=== PATIENT | male | born 1980 | race Caucasian/White ===

== ENCOUNTER 2024-05-19 04:57 | Emergency (ER) | payer BC, OTHER ==
[~2024-05-19] VITALS: Ht 177.8 cm; Wt 79.2 kg
--- NOTE | 2024-05-19 05:26 | ED.PDOC ---
General HPI Comments 43-year-old male came to emergency room for flank pains. Patient states for the past 2 days, he has been experiencing episodes of right flank pain, lower back pains, suprapubic pain associated with dysuria. Denies any fever, nausea or vomiting. Chief Complaint: Flank Pain Time Seen by MD: 05:25 Reviewed notes: Nurses Notes Allergies: Coded Allergies: NO KNOWN ALLERGIES (Unverified , 05/19/24) Information Source: Patient Mode of Arrival: Ambulatory Severity: Moderate Inability to void: Mild Timing: Days Duration: Intermittent Has not urinated for: Minutes Onset: Spontaneous Symptoms: Dysuria History of: Kidney stone Location: (R) Flank associated signs and symptoms: Abdominal Pain, Flank Pain, Back Pain, Dysuria Past Medical History PAST MEDICAL HISTORY: Cancer (Colorectal cancer on chemotherapy), Kidney Stones Surgical History: Hernia Repair Family History Family History: Reviewed,noncontributory to illness Social History Smoker: Non-Smoker Alcohol: Occasionally Drugs: Denies Drug Use Lives In: Home Constitutional: denies: chills, diaphoresis, fatigue, fever, malaise, sweats, weakness, others EENTM: denies: blurred vision, double vision, ear bleeding, ear discharge, ear drainage, ear pain, ear ringing, eye pain, eye redness, hearing loss, mouth pain, mouth swelling, nasal discharge, nose bleeding, nose congestion, nose pain, photophobia, tearing, throat pain, throat swelling, voice changes, others Respiratory: denies: cough, hemoptysis, orthopnea, SOB at rest, shortness of breath, SOB with excertion, stridor, wheezing, others Cardiovascular: denies: chest pain, dizzy spells, diaphoresis, Dyspnea on exertion, edema, irregular heart beat, left arm pain, lightheadedness, palpitations, PND, syncope, others Gastrointestinal: reports: abdominal pain; denies: abdomen distended, blood streaked bowels, constipated, diarrhea, dysphagia, difficulty swallowing, hematemesis, melena, nausea, poor appetite, poor fluid intake, rectal bleeding, rectal pain, vomiting, others Genitourinary: reports: dysuria, flank pain; denies: burning, frequency, hematuria, incontinence, penile discharge, penile sore, pain, testicle pain, testicle swelling, urgency, others Neurological: denies: dizziness, fainting, headache, left sided numbness, left sided weakness, numbness, paresthesia, pre-existing deficit, right sided numbness, right sided weakness, seizure, speech problems, tingling, tremors, weakness, others Musculoskeletal: reports: back pain; denies: gout, joint pain, joint swelling, muscle pain, muscle stiffness, neck pain, others Integumetry: denies: bruises, change in color, change in hair/nails, dryness, laceration, lesions, lumps, rash, wounds, others Allergic/Immunocompromised: denies: Difficulty Healing, Frequent Infections, Hives, Itching, others Hematologic/Lymphatic: denies: anemia, blood clots, easy bleeding, easy bruising, swollen glands, others Endocrine: denies: excessive hunger, excessive sweating, excessive thirst, excessive urination, flushing, intolerance to cold, intolerance to heat, unexplained weight gain, unexplained weight loss, others Psychiatric: denies: anxiety, bipolar disorder, depression, hopeless, panic disorder, schizophrenia, sleepless, suicidal, others Physical Exam General Appearance: No Apparent Distress, Normal HEENT: Normal ENT Inspection, Pharynx Normal, TMs Normal Neck: Full Range of Motion, Non-Tender, Normal, Normal Inspection Respiratory: Chest Non-Tender, Lungs Clear, No Accessory Muscle Use, No Respiratory Distress, Normal Breath Sounds Cardiovascular: No Edema, No JVD, No Murmur, No Gallop, Normal Peripheral Pulses, Regular Rate/Rhythm Breast Exam: Deferred Gastrointestinal: No Organomegaly, No Pulsatile Mass, Normal Bowel Sounds, Soft, Suprapubic, Tenderness (Right CVA) Genitalia: Deferred Pelvic: Deferred Rectal: Deferred Extremities: No calf tenderness, Normal capillary refill, Normal inspection, Normal range of motion, Non-tender, No pedal edema Musculoskeletal : Apperance: Normal Neurologic: Alert, materials management manager II-XII nml as Tested, No Motor Deficits, Normal Affect, Normal Mood, No Sensory Deficits Cerebellar Function: Normal Reflexes: Normal Skin: Dry, Normal Color, Warm Lymphatic: No Adenopathy Was a procedure done? Was a procedure done?: No Differential Diagnosis Kidney stone (Female): N/A Kidney stone (Male): Strain, Urinary obstruction, Urolithiasis, Renal infarction, Urinary tract infection Urinary Problem (Female): Pyelonephritis, Urolithiasis, UTI X-Ray, Labs, Meds, VS Vital Signs Date Time Temp Pulse Resp B/P (MAP) Pulse Ox O2 Delivery O2 Flow Rate FiO2 05/19/24 06:30 71 18 98 Room Air* 0 21 05/19/24 06:26 71 16 123/84 (97) 99 05/19/24 05:05 97.6 70 12 150/93 (112) 99 Lab Test 05/19/24 05:19 05/19/24 05:00 Range/Units White Blood Count 3.3 L 4.4-10.8 10^3/uL Red Blood Count 4.10 L 4.5-5.90 10^6/uL Hemoglobin 12.8 L 13.5-17.5 g/dL Hematocrit 37.6 L 41.0-53.0 % Mean Corpuscular Volume 91.8 80.0-100.0 fL Mean Corpuscular Hemoglobin 31.3 28.0-32.0 pg Mean Corpuscular Hemoglobin Concent 34.1 32.0-36.0 g/dL Red Cell Distribution Width 15.5 H 11.8-14.3 % Platelet Count 149 140-450 10^3/uL Mean Platelet Volume 7.5 6.9-10.8 fL Neutrophils (%) (Auto) 61.7 37.0-80.0 % Lymphocytes (%) (Auto) 23.3 10.0-50.0 % Monocytes (%) (Auto) 11.5 0.0-12.0 % Eosinophils (%) (Auto) 3.0 0.0-7.0 % Basophils (%) (Auto) 0.5 0.0-2.0 % Neutrophils # (Auto) 2.0 1.6-8.6 10 ^3/uL Lymphocytes # (Auto) 0.8 0.4-5.4 10 ^3/uL Monocytes # (Auto) 0.4 0-1.3 10 ^3/uL Eosinophils # (Auto) 0.1 0-0.8 10 ^3/uL Basophils # (Auto) 0 0-0.2 10 ^3/uL Nucleated Red Blood Cells 0.1 % Sodium Level 137 136-145 mmol/L Potassium Level 3.9 3.5-5.1 mmol/L Chloride Level 105 98-107 mmol/L Carbon Dioxide Level 26 20-31 mmol/L Anion Gap 6 5-15 Blood Urea Nitrogen 12 9-23 mg/dL Creatinine 0.84 0.700-1.30 mg/dL Glomerular Filtration Rate Calc 110 >90 mL/min BUN/Creatinine Ratio 14.3 10.0-20.0 Serum Glucose 95 74-106 mg/dL Calcium Level 10.4 8.7-10.4 mg/dL Urine Color Colorless Yellow Urine Clarity Clear Clear Urine pH 6.0 5.0-9.0 Urine Specific [place] 1.003 1.001-1.035 Urine Protein Negative Negative Urine Ketones Negative Negative Urine Blood 1+ H Negative /uL Urine Nitrite Negative Negative Urine Bilirubin Negative Negative Urine Urobilinogen Normal Negative mg/dL Urine Leukocyte Esterase Negative Negative /uL Urine RBC 1 0 - 3 /hpf Urine Microscopic WBC 1 0-3 /HPF Urine Squamous Epithelial Cells None seen <5 /hpf Urine Bacteria None seen None Seen /hpf Urine Hyaline Casts Few 0 - 2 /lpf Urine Glucose Normal Normal mg/dL Current Medications Medications (Trade) Dose Ordered Sig/Marce Route Start Time Stop Time Status Last Admin Tamsulosin HCl (Flomax) 0.4 mg ONCE ONCE PO 05/19/24 07:00 05/19/24 07:01 DC 05/19/24 07:17 X-Ray, Labs, Meds, VS Comment Addendum by Glenna: This 43 year old male presents with RIGHT flank pain. Patient noted to have hematuria and nephrolithiasis. The kidney stones 5 mm. He states the pain is well controlled and, as such, he was not requesting [place]. He will be discharged home with Flomax. He is asked to very well hydrated to try to pass the stone. However, if he was increasing pain, fever, chills, sweats, nausea or vomiting or any other signs or symptoms that has concerned, he is asked to return to emergency room immediately. He states his understanding Time of 1ST Reevaluation: 05:21 Reevaluation 1ST: Unchanged Patient Education/Counseling: Diagnosis, Treatment Family Education/Counseling: No Family Present Departure 1 Departure Time of Disposition: 08:07 Impression: Primary Impression: Right flank pain Additional Impression: Nephrolithiasis Disposition: 01 HOME / SELF CARE / HOMELESS Condition: Good Discharged With: Self Critical Care Note Critical Care Time?: No Stability Stability form required: No Heart Score Heart Score: Heart Score Response (Comments) Value History N/A 0 EKG N/A 0 Age N/A 0 Risk Factors N/A 0 Troponin N/A 0 Total 0 I personally scribed for DANITA KAUR MD ([email or web address]) on 05/19/24 at 05:26. Electronically submitted by Bobo Dutton ([email or web address]). DANITA KAUR MD May 19, 2024 05:26 HAILE ROWE MD May 19, 2024 08:07
[2024-05-19 05:35] LABS: Basophils # (auto) 0 10 ^3/uL (0-0.2); Basophils % (auto) 0.5 % (0.0-2.0); Eosinophils # (auto) 0.1 10 ^3/uL (0-0.8); Hematocrit 37.6 % (41.0-53.0); Hemoglobin 12.8 g/dL (13.5-17.5); Lymphocytes # (auto) 0.8 10 ^3/uL (0.4-5.4); Lymphocytes % (auto) 23.3 % (10.0-50.0); Mean Corpuscular Hemoglobin 31.3 pg (28.0-32.0); Mean Corpuscular Hgb Conc. 34.1 g/dL (32.0-36.0); Mean Corpuscular Volume 91.8 fL (80.0-100.0); Monocytes # (auto) 0.4 10 ^3/uL (0-1.3); Monocytes % (auto) 11.5 % (0.0-12.0); Neutrophils % (auto) 61.7 % (37.0-80.0); Nucleated Red Blood Cells % 0.1 %; Platelet Count (auto) 149 10^3/uL (140-450); Red Cell Distribution Width 15.5 % (11.8-14.3); White Blood Cell 3.3 10^3/uL (4.4-10.8)
[2024-05-19 05:36] LABS: Urine Bacteria None Seen /hpf (None Seen)
[2024-05-19 05:48] LABS: Chloride 105 mmol/L (98-107); Potassium 3.9 mmol/L (3.5-5.1); Sodium 137 mmol/L (136-145)
[2024-05-19 05:49] LABS: Anion Gap 6 (5-15); Carbon Dioxide 26 mmol/L (20-31)
[2024-05-19 05:50] LABS: Calcium 10.4 mg/dL (8.7-10.4)
[2024-05-19 05:54] LABS: BUN/Creatinine Ratio 14.3 (10.0-20.0); Blood Urea Nitrogen 12 mg/dL (9-23); Glucose 95 mg/dL (74-106)
[2024-05-19 06:03] LABS: Urine Blood 1+ /uL (Negative); Urine Clarity Clear (Clear); Urine Color Colorless (Yellow); Urine Hyaline Cast FEW /lpf (0 - 2); Urine Protein, UAD Negative (Negative); Urine Specific Gravity 1.003 (1.001-1.035); Urine Squamous Epithelial Cell None Seen /hpf (<5); Urine Urobilinogen Normal (Negative)
[2024-05-19 06:30] VITALS: PULSE 71; RESP 18; O2SAT 98
[2024-05-19 06:35] LABS: Urine WBC 1 /HPF (0-3)
[2024-05-19] MEDS: TAMSULOSIN HYDROCHLORIDE 0.4 MG CAP PO ONE (07:17)
[2024-05-19] MEDS: MORPHINE SULFATE 4 MG/ML SYR/VIAL IV ONE (07:20)
[2024-05-19] MEDS: SODIUM CHLORIDE 0.9% 1,000 ML IV ONE (07:20)
[2024-05-19] MEDS: FAMOTIDINE (10MG/ML) 2ML VL IV ONE (07:21)
[2024-05-19] MEDS: ONDANSETRON HCL 4 MG/2 ML VIAL IV ONE (07:21)
--- NOTE | 2024-05-19 07:30 | DVH ---
Exam: CT CT AB PEL WO CON-NO ORAL OR IV History: Flank pain and hematuria Comparison Study: None available at time of dictation. Technique: Multidetector spiral CT of the abdomen and pelvis was performed from lung bases to pubic s ymphysis. Imaging was performed without intravenous contrast. Coronal and sagittal multiplanar refor mats were obtained from the axial data set by the technologist. Radiation Dose : 1. Abdomen/Pelvis: CTDIvol 6.4 mGy, DLP 306.1 mGy*cm. Findings: Evaluation of vasculature and solid organs is limited due to lack of intravenous contrast use. Lung Bases: Lung bases are clear. Visualized portions of the heart and pericardium are unremarkable. Liver: The liver is normal in size. No focal lesions. Gallbladder and Biliary Tree: The gallbladder is unremarkable. No intrahepatic or extrahepatic bili tal ductal dilatation. Spleen: Unremarkable Pancreas: The pancreas is grossly unremarkable. Adrenal Glands: Unremarkable Kidneys: There is mild right hydroureteronephrosis due to a 5mm stone at the right ureterovesical neil ction. Additional bilateral nephrolithiasis. GI tract: Hiatal hernia. No evidence of small bowel wall thickening or abnormal dilatation to sugges t bowel obstruction. There is wall thickening in the rectum. The appendix is visualized, and there is no acute appendicitis. Peritoneum/mesentery/retroperitoneum. No evidence of free intraperitoneal air. No ascites. No evidenc e of suspicious lymphadenopathy. Abdominal Wall: Unremarkable. Vasculature: The visualized abdominal aorta is normal in size and caliber. Evaluation of abdominal a nd pelvic vessels is limited due to lack of intravenous contrast. Urinary Bladder: Grossly unremarkable for degree of distention. Pelvic Organs: Unremarkable Musculoskeletal: No aggressive focal bony lesions, acute fractures or dislocation. Multilevel disc d egeneration. IMPRESSION: 1. Acute right obstructive uropathy due to 5 mm stone at the right UVJ. Additional bilateral nephrol ithisis. 2. Wall thickening in the rectum. This could be due to underdistention, however please correlate with the history of malignancy.
[2024-05-19] MEDS ORDERED: TAMS-35 PO (08:08)
[2024-05-19 08:48] VITALS: BP 131/80; PULSE 63; RESP 16; TEMP 97.8; O2SAT 99
== END 2024-05-19 09:06 | disposition home or self-care (01) ==
LOC: ER 04:57
DX: N20.0 Calculus of kidney (principal); Z85.048 Personal history of other malignant neoplasm of rectum, rectosigmoid junction, and anus; Z98.890 Other specified postprocedural states
CPT/HCPCS: 36415; 74176; 80048; 81001; 85025